=== PATIENT | female | born 1940 | race Caucasian/White ===

== ENCOUNTER 2016-06-09 08:00 | Outpatient (CLI) | payer MEDICARE | END 2016-06-09 08:01 | disposition home or self-care (01) | DX: N39.0 Urinary tract infection, site not specified (principal) ==

== ENCOUNTER 2016-06-24 08:27 | Outpatient (CLI) | payer MEDICARE | END 2016-06-24 08:28 | disposition home or self-care (01) | DX: E78.5 Hyperlipidemia, unspecified (principal); R53.83 Other fatigue ==